=== PATIENT | male | born 1990 ===

== ENCOUNTER 2016-11-08 14:53 | Emergency (ER) | payer SELFPAY ==
--- NOTE | 2016-11-08 16:13 | UC ---
HPI BURN - HPI Summary HPI Summary: complaint of burn on right 3rd and 4th finger with avalos grease today at 11:00 today, happened at work today blisters on his 3rd finger, kept it in ice water all day intermittent aching pain in both fingers hasn't taken any medication for pain tetanus immunization 2015 laceration repair - History of Current Complaint Stated Complaint: BURN INJURY Time Seen by Provider: 11/08/16 16:04 Hx Obtained From: Patient Character: Scald Alleviating: Cool Soaks - Allergy/Home Medications Allergies/Adverse Reactions: Allergies Allergy/AdvReac Type Severity Reaction Status Date / Time No Known Allergies Allergy Verified 07/25/15 13:02 PMH/Surg Hx/FS Hx/Imm Hx Previously Healthy: Yes Endocrine History Of: Denies: Diabetes, Thyroid Disease Cardiovascular History Of: Denies: Cardiac Disorders, Hypertension Respiratory History Of: Denies: COPD, Asthma GI/ History Of: Denies: Ulcer - Surgical History Surgical History: None - Family History Known Family History: Negative: Cardiac Disease, Hypertension, Diabetes - Social History Occupation: Employed Part-time, Student Alcohol Use: Occasionally Substance Use Type: None Smoking Status (MU): Light Every Day Tobacco Smoker Type: Cigarettes Amount Used/How Often: 2 CIGARETTES- pk/wk Length of Time of Smoking/Using Tobacco: 9 YEARS Have You Smoked in the Last Year: Yes Cessation Counseling: Patient Advised to Stop - Immunization History Most Recent Tetanus Shot: unk Review of Systems Constitutional: Negative Skin: Other - greene ENT: Negative Respiratory: Negative Cardiovascular: Negative Gastrointestinal: Negative Genitourinary: Negative Motor: Negative Neurovascular: Negative Musculoskeletal: Negative Neurological: Negative Psychological: Negative All Other Systems Reviewed And Are Negative: Yes Physical Exam Triage Information Reviewed: Yes Appearance: No Pain Distress, Well-Nourished Vital Signs Reviewed: Yes Eyes: Positive: Conjunctiva Clear ENT: Positive: Pharynx normal, TMs normal. Negative: Nasal congestion Neck: Positive: No Lymphadenopathy Respiratory: Positive: Lungs clear, Normal breath sounds, No respiratory distress Cardiovascular: Positive: RRR, No Murmur, Pulses Normal Abdomen Description: Positive: Nontender, Soft Bowel Sounds: Positive: Present Musculoskeletal Exam: Normal Neurological Exam: Normal Psychological Exam: Normal Skin: Positive: Other - right middle finger 3x2cm 2nd degree burn between DIP and PIP no joint involvement right ring [id number] cm 2nd degree burn between DIP and PIP no joint involvement Burn Calculation - [place] Formula for Fluid Resuscitation 24 -Hour Fluid Replacement: 0.0 Course/Dx Burn - Differential Dx - Burn Differential Diagnoses: Direct Contact Thermal Burn - Diagnoses Clinic Provider Diagnoses: 2nd degess greene on righ middle and ring fingers Discharge - Discharge Plan Condition: Stable Disposition: HOME Prescriptions: Cephalexin CAP* [Keflex CAP*] 500 mg PO TID #21 cap Patient Education Materials: Second Degree Burn (ED) Referrals: No Primary Care Phys,NOPCP [Primary Care Provider] - Additional Instructions: start anitbiotic as prescribed change dressing daily and use bacitracin on burn Take acetaminophen or ibuprofen for fever or pain Please review your discharge instructions. If your symptoms do not improve please call your primary care provider or return to urgent care.
[2016-11-08] MEDS ORDERED: Tetan/Diph/Pertus SYR(Tdap)* 0.5 ML SYR(BOOSTRIX) use SYR IM ONE (16:16)
[2016-11-08] MEDS ORDERED: Ibuprofen TAB* 400 MG PO ONE (16:17)
[2016-11-08] MEDS ORDERED: Bacitracin OINTMENT* 0.5% 0.5 oz TUBE TOPICAL ONE (16:18)
[2016-11-08 16:32] VITALS: BP 125/63
== END 2016-11-08 16:40 | disposition home or self-care (01) ==
LOC: UCEAST 14:53
DX: T23.231A Burn of second degree of multiple right fingers (nail), not including thumb, initial encounter (principal); X12.XXXA Contact with other hot fluids, initial encounter; Y93.G3 Activity, cooking and baking; Y92.511 Restaurant or cafe as the place of occurrence of the external cause; Y99.0 Civilian activity done for income or pay; F17.210 Nicotine dependence, cigarettes, uncomplicated
CPT/HCPCS: 90715; 99213; A9270-GY; G0463